=== PATIENT | male | born 1985 | race Caucasian/White ===

== ENCOUNTER 2017-11-01 16:25 | Emergency (ER) | payer OTHER ==
[2017-11-01] MEDS: predniSONE 20 MG TAB PO (18:08)
[2017-11-01] MEDS: ALBUTEROL 0.083% (NEB) 2.5 MG/3 ML AMP NEB (18:20)
[2017-11-01] MEDS: IPRATROPIUM (NEB) 0.5 MG/2.5 ML AMP NEB (18:20)
== END 2017-11-01 19:05 | disposition home or self-care (01) ==
LOC: E/R 16:25 → FTE 19:05
DX: R05 Cough (principal); J45.909 Unspecified asthma, uncomplicated
CPT/HCPCS: 94664; 99284-25